=== PATIENT | male | born 1950 | race African-American/Black ===

== ENCOUNTER 2018-10-02 14:35 | Emergency (ER) | payer MEDICARE, MEDICAID ==
[~2018-10-02] VITALS: Ht 172.7 cm; Wt 75.0 kg
[2018-10-02] MEDS ORDERED: SILVER NITRATE APPLICATOR STICK TOP ONE (16:30)
[2018-10-02 19:03] VITALS: BP 140/82
== END 2018-10-02 18:55 | disposition home or self-care (01) ==
LOC: ER 14:35
DX: R04.0 Epistaxis (principal); I10 Essential (primary) hypertension
CPT/HCPCS: 30901; 99284